=== PATIENT | female | born 1960 | race African-American/Black ===

== ENCOUNTER 2017-11-03 12:14 | Emergency (ER) | payer BC ==
[~2017-11-03] VITALS: Ht 162.6 cm; Wt 68.0 kg
[2017-11-03 14:29] VITALS: BP 149/77
[2017-12-31] MEDS ORDERED: OMEPRAZOLE40 MG PO (08:57)
[2017-12-31] MEDS ORDERED: LIPITOR 20 MG T20 M1 PO (08:57)
[2017-12-31] MEDS ORDERED: ASPIRIN325 PO (08:58)
[2017-12-31] MEDS ORDERED: CENTRUM SILVER1 EAC4 PO (08:59)
[2017-12-31] MEDS ORDERED: VITAMIN D1000 UNI1 PO (08:59)
== END 2017-11-03 14:39 | disposition home or self-care (01) ==
LOC: ER 12:14
DX: S80.01XA Contusion of right knee, initial encounter (principal); M25.511 Pain in right shoulder; E78.00 Pure hypercholesterolemia, unspecified; Z86.711 Personal history of pulmonary embolism; V48.6XXA Car passenger injured in noncollision transport accident in traffic accident, initial encounter; Y93.89 Activity, other specified; Y92.89 Other specified places as the place of occurrence of the external cause; Y99.8 Other external cause status

== ENCOUNTER → 2017-11-13 | Outpatient (CLI) | payer BC ==
[~2017-11-13] MED LIST: ASPIRIN325 PO; CENTRUM SILVER1 EAC4 PO; LIPITOR 20 MG T20 M1 PO; NORCO 5-325 TA1 EACH PO; OMEPRAZOLE40 MG PO; VITAMIN D1000 UNI1 PO
== END ==
LOC: ULTRA 13:03
DX: S89.81XA Other specified injuries of right lower leg, initial encounter (principal); S80.11XA Contusion of right lower leg, initial encounter; X58.XXXA Exposure to other specified factors, initial encounter; Y93.89 Activity, other specified; Y92.89 Other specified places as the place of occurrence of the external cause; Y99.8 Other external cause status

== ENCOUNTER 2018-01-02 05:34 | Day surgery (SDC) | payer BC ==
[~2018-01-02] VITALS: Ht 162.6 cm; Wt 71.7 kg
--- NOTE | ~2018-01-02 | O ---
[facility] [place] [address] OPERATIVE REPORT Name: THANH LOVE Sheba Room #: DEP [facility]..#: [id number] Admission: 01/02/18 Attend Phys: Rob Elizondo MD Discharge: 01/02/18 Date of : 64 Report #: [id number] THIS REPORT FOR: //name// CC: Dr. Xin Lauren DATE OF SERVICE: 01/02/2018 PREOPERATIVE DIAGNOSIS: Left shoulder mass consistent with lipoma. POSTOPERATIVE DIAGNOSIS: Left shoulder mass consistent with lipoma, 6 cm lipoma. PROCEDURE PERFORMED: Excision of 6 cm left shoulder mass/lipoma. ANESTHESIA: IV sedation, local 0.25% Marcaine. COMPLICATIONS: None. ESTIMATED BLOOD LOSS: 5 mL. PROCEDURE NOTE: With the patient under IV sedation, 0.25% Marcaine was used to anesthetize the skin over the mass. The mass was draped in sterile fashion. Timeout was performed. The numbing medicine infiltrated subcutaneous tissue surrounding the mass and actually made the mass more distinct. A transverse skin incision was made. The mass was freed without difficulty. The mass was identified. There is a lobulation identified in the mass. The mass was dissected without difficulty. The mass was completely removed. Again, specimen is about 6 cm in size. It is benign appearing. Specimen sent to pathology. Irrigation was performed. No drain was needed. Subcutaneous tissue was closed with 4-0 PDS. Skin was closed with 5-0 PDS running subcuticular fashion. Mastisol, Steri-Strip, 4 x 4 and Op-Site was used for dressing. The patient tolerated the procedure well. <ELECTRONICALLY SIGNED> By: Rob Elizondo MD 02/05/18 1413 1527 [id number] Rob Elizondo MD /nt
--- NOTE | ~2018-01-02 | S ---
[facility] [place] [address] SURGICAL PATH RPT PROCEDURE Name: DEBORA BERG Room #: DEP [facility]..#: [id number] Admission: 01/02/18 Date of : 64 Discharge: 01/02/18 Report #: [id number] Path Case #: [id number] PATHOLOGY REPORT COLLECTION DATE: 01/02/2018 RECEIVED DATE: 01/02/2018 SUBMITTING PHYS: Dr. Rob Elizondo OTHER PHYS: Dr. Landon Lauren SPECIMEN(S) RECEIVED: A.L shoulder * * * * * * * * * * * * FINAL DIAGNOSIS: "L shoulder," excision: - Mature adipose tissue consistent with lipoma. (CLW:mgr; 01/06/2018) PATHOLOGIST: Alicia Priest M.D. REPORT ELECTRONICALLY SIGNED BY: Alicia Priest M.D. DATE/TIME: 01/06/2018 22:00 * * * * * * * * * * * * GROSS PATHOLOGY: Received in formalin labeled "Debora Berg, lipoma" is a partially fragmented gunderson-yellow lobulated soft tissue mass which measures 4.6 x 4.3 x 1.5 cm. The external surface is inked black. The specimen is serially sectioned to reveal a gunderson-yellow homogeneous cut surface without hemorrhage or necrosis. Entry Level [employer] Developer sections of the specimen are submitted in cassettes A1-A3, with 2 sections in each cassette. ([facility]; 01/02/2018) CLINICAL HISTORY: Left shoulder mass. INITIAL CPT CODE(S): A; 30957 Professional services performed by [facility] at [facility] [address] [place] [address] Technical services performed by [facility] at [address] [place] [id number]. [facility] [address] [place] [address] SURGICAL PATH RPT PROCEDURE Name: DEBORA BERG Room #: DEP [facility] Marissa#: [id number] Admission: 01/02/18 Date of : 64 Discharge: 01/02/18 Report #: [id number] Path Case #: [id number] [facility] [address] [address] PHONE: [phone] DIRECTOR: Dominick Reza M.D. * * * END OF REPORT * * *
[~2018-01-02 05:34] MED LIST changes: -NORCO 5-325 TA1 EACH PO
[2018-01-02 11:34] VITALS: BP 124/61
[2018-01-02] MEDS ORDERED: NORCO 5-325 TA1 EACH PO (13:47)
[2018-01-02 14:16] VITALS: BP 124/61
== END 2018-01-02 14:42 | disposition home or self-care (01) ==
LOC: TBA 05:34 → OR 05:34
DX: D17.22 Benign lipomatous neoplasm of skin and subcutaneous tissue of left arm (principal); E78.5 Hyperlipidemia, unspecified; K21.9 Gastro-esophageal reflux disease without esophagitis; Z90.49 Acquired absence of other specified parts of digestive tract; Z98.890 Other specified postprocedural states; Z79.82 Long term (current) use of aspirin; Z79.899 Other long term (current) drug therapy; Z79.891 Long term (current) use of opiate analgesic
CPT/HCPCS: 50010; 50101; 50386; 54118; 56526; 62110; 62850; 70005

== ENCOUNTER 2020-06-17 15:55 | Emergency (ER) | payer BC, OTHER ==
[~2020-06-17] VITALS: Ht 160 cm; Wt 72.6 kg
[~2020-06-17 15:55] MED LIST changes: +NORCO 5-325 TA1 EACH PO
--- NOTE | 2020-06-17 16:52 | EKG ---
[facility] [place] [address] ELECTROCARDIOGRAM REPORT Name: THANH LOVE Room #: [facility]..#: [id number] Admission: Attend Phys: Discharge: Date of : 64 Report #: [id number] THIS REPORT FOR: cc: Landon Lauren Phyllis L. DO Lundgren, Craig H. MD [facility] ~ THIS REPORT FOR: //name// [facility] ED Test Date: 2020-06-17 Test Time: 15:57:47 Pat Name: THANH LOVE Department: Room: Gender: [facility] Agent: [facility] : 1960 Requested By: Juanito Montes Order Number: [id number] MD: Greg Roach Measurements Intervals Albers Rate: 75 P: 58 NE: 160 QRS: -24 QRSD: 82 T: 20 QT: 404 QTc: 452 Interpretive Statements Sinus rhythm Nonspecific T wave abnormality No previous ECG available for comparison Electronically Signed On 06-17-2020 16:51:47 CDT by Greg Roach [email or web address] <ELECTRONICALLY SIGNED> By: Greg Roach MD, [facility] 06/17/20 1651 1557 155 Greg Roach MD, [facility] /EPI
[2020-06-17] MEDS ORDERED: IRON325 M1 PO (17:18)
[2020-06-17] MEDS ORDERED: METHOCARBAMOL500 M2 PO (17:40)
[2020-06-17] MEDS ORDERED: NAPROSYN500 MG PO (17:40)
[2020-06-17 18:25] LABS: EOSINOPHILS 1.9 % (0.0-3.0); HEMATOCRIT 31.8 % (37.0-47.0); LYMPHOCYTES 22.1 % (24.0-44.0); MCH 29.5 pg (26.0-34.0); MCHC 34.5 g/dL (28.0-37.0); MCV 85.6 fL (80.0-100.0); MONOCYTES 8.8 % (1.0-8.0); PLATELET COUNT 183 thou/uL (150-400); POLYS 66.2 % (36.0-66.0); RBC 3.71 mil/uL (4.20-5.00); RDW 14.7 % (10.5-14.5)
[2020-06-17 18:36] LABS: ANION GAP 8 mmol/L (7-16); BUN 8 mg/dL (7-18); CALCIUM 8.7 mg/dL (8.5-10.1); CHLORIDE 107 mmol/L (98-107); CO2 27 mmol/L (21-32); CREATININE 0.7 mg/dL (0.6-1.0); GLUCOSE 92 mg/dL (74-106); POTASSIUM 3.5 mmol/L (3.5-5.1); SODIUM 142 mmol/L (136-145)
[2020-06-17 18:49] LABS: ALBUMIN 3.6 g/dL (3.4-5.0); SGOT 75 U/L (15-37); SGPT 101 U/L (30-65); TOTAL BILIRUBIN 0.3 mg/dL (0.2-1.0); TOTAL PROTEIN 6.6 g/dL (6.4-8.2); TROPONIN-I <0.06 ng/mL (<0.06)
[2020-06-17 19:20] VITALS: BP 121/63
== END 2020-06-17 19:22 | disposition home or self-care (01) ==
LOC: ER 15:55
PROVIDERS: Emergency Medicine
DX: R07.89 Other chest pain (principal); M43.6 Torticollis; K21.9 Gastro-esophageal reflux disease without esophagitis; E78.5 Hyperlipidemia, unspecified; Z79.82 Long term (current) use of aspirin; Z79.899 Other long term (current) drug therapy; Z90.49 Acquired absence of other specified parts of digestive tract